=== PATIENT | female | born 1945 | race Caucasian/White ===

== ENCOUNTER 2016-12-25 11:47 | Emergency (ER) | payer BC ==
[2016-12-25 14:01] LABS: HEMOGLOBIN 13.2 gm/dl (12.3-15.3); RED BLOOD COUNT 4.3 M/UL (4.00-5.10); WHITE BLOOD COUNT 8.9 K/UL (4.5-11.0)
[2016-12-25 14:17] LABS: BUN/CREATININE RATIO 21 (0-10)
== END 2016-12-25 18:28 | disposition home or self-care (01) ==
LOC: ER1 11:47
PROVIDERS: Emergency Medicine
DX: L03.115 Cellulitis of right lower limb (principal); I80.3 Phlebitis and thrombophlebitis of lower extremities, unspecified; I83.91 Asymptomatic varicose veins of right lower extremity
CPT/HCPCS: 36415; 80048; 85025; 87040; 93971; 96365; 96366; 99283; J3370

== ENCOUNTER → 2017-01-03 | Outpatient (CLI) | payer MEDICARE | LOC: US 12:28 | DX: M79.661 Pain in right lower leg (principal); M79.89 Other specified soft tissue disorders | CPT/HCPCS: 93971 ==